=== PATIENT | female | born 1990 | race Caucasian/White ===

== ENCOUNTER 2023-04-01 17:29 | Emergency (ER) | payer SELFPAY ==
[2023-04-01 17:41] VITALS: BP 119/73; PULSE 89; RESP 16; TEMP 36.7; O2SAT 100
--- NOTE | 2023-04-01 18:13 | ED.GENADULT ---
HPI - General Adult General Chief complaint: Skin/Abscess/Foreign Body Stated complaint: itching skin Time Seen by Provider: 04/01/23 18:17 History of Present Illness HPI narrative: Zulay River is a 33 y/o female who presents with reports of having an itchy rash to her trunk, bilateral upper and lower extremities for two weeks. She has been trying to take Zyrtec at home without much relief. Denies SOB denies throat swelling/ no difficulty swallowing. Related Data Allergies Allergy/AdvReac Type Severity Reaction Status Date / Time No Known Allergies Allergy Verified 04/01/23 17:30 Review of Systems Review of Systems: All systems reviewed & are unremarkable except as noted in HPI and below (itchy rash to arms/ trunk and legs. ) Constitutional: Constitutional: Reports as per HPI Exam Const: General: healthy appearing, no acute distress and alert Nutritional Appearance: well nourished Orientation/consciousness: patient oriented x3 Limitations: no limitations HENMT: Head: normal to inspection Eyes: Conjunctivae: conjunctivae normal Neck: Neck: normal visual inspection Chest: Chest palpation & inspection: normal inspection of the chest Resp: Effort & Inspection: normal respiratory effort Auscultation: clear to auscultation bilaterally Cardio: Rate: regular rate Rhythm: regular rhythm Skin: General skin exam: normal color Rashes: no rashes (pink blanchable rash to chest/ abdomen /upper and lower extremities scatter) Neuro: General: patient oriented x3 Extrem: General: normal to inspection Psych: Mental Status: mental status grossly normal Affect: normal affect Course Vital Signs Vital signs: Vital Signs Temperature 36.7 C 04/01/23 17:41 Pulse Rate 89 04/01/23 17:41 Respiratory Rate 16 04/01/23 17:41 Blood Pressure 119/73 04/01/23 17:41 Pulse Oximetry 100 04/01/23 17:41 Oxygen Delivery Room Air 04/01/23 17:41 Temperature 36.7 C 04/01/23 17:41 Pulse Rate 89 04/01/23 17:41 Respiratory Rate 16 04/01/23 17:41 Blood Pressure 119/73 04/01/23 17:41 Pulse Oximetry 100 04/01/23 17:41 Oxygen Delivery Room Air 04/01/23 17:41 Medical Decision Making [facility] Narrative Medical decision making narrative: erythemic urticaria noted to trunk/ arms/ legs tht pt complains is itchy / no drainage/ evidence of infection denies SOB / no chest pain No known irritant has been ongoing for 2 weeks, with minimal relief with PO Zyrtec Plan to treat here with steroids/ Benadryl/ famotidine and will d/c home with continuation of treatment discussed plan with pt and her significant other all questions answered denies needing anything further. Medical Records Medical records reviewed: Yes I reviewed the external patient's medical records. Vital Signs Vital Signs: Vital Signs Temperature 36.7 C 04/01/23 17:41 Pulse Rate 89 04/01/23 17:41 Respiratory Rate 16 04/01/23 17:41 Blood Pressure 119/73 04/01/23 17:41 Pulse Oximetry 100 04/01/23 17:41 Oxygen Delivery Room Air 04/01/23 17:41 Temperature 36.7 C 04/01/23 17:41 Pulse Rate 89 04/01/23 17:41 Respiratory Rate 16 04/01/23 17:41 Blood Pressure 119/73 04/01/23 17:41 Pulse Oximetry 100 04/01/23 17:41 Oxygen Delivery Room Air 04/01/23 17:41 Discharge Plan Discharge Clinical Impression: Contact dermatitis Qualifiers: Contact dermatitis type: unspecified Contact dermatitis trigger: unspecified trigger Qualified Code(s): L25.9 - Unspecified contact dermatitis, unspecified cause Patient Disposition: Home, Self-Care Condition: Stable Instructions: Antibiotic Form Additional Instructions: Continue to take the Zyrtec daily continue to take Benadryl at bedtime for severe itching Start the prednisone once daily for 5 days starting 04/02 Continue to take Famotidine once daily Follow up with a PCP in 1 week Return to the ED for any worsening symptoms or concerns.
[2023-04-01] MEDS: diphenhydrAMINE HCl CAP 25 MG CAPSULE 50 MG PO (19:00)
[2023-04-01] MEDS: FAMOTIDINE 20 MG TABLET PO (19:00)
--- NOTE | 2023-04-01 19:23 | ED_ITS ---
HPI - General Adult General Chief complaint: Skin/Abscess/Foreign Body Stated complaint: itching skin Time Seen by Provider: 04/01/23 18:17 Related Data Allergies Allergy/AdvReac Type Severity Reaction Status Date / Time No Known Allergies Allergy Verified 04/01/23 17:30 Course Vital Signs Vital signs: Vital Signs Temperature 36.7 C 04/01/23 17:41 Pulse Rate 89 04/01/23 17:41 Respiratory Rate 16 04/01/23 17:41 Blood Pressure 119/73 04/01/23 17:41 Pulse Oximetry 100 04/01/23 17:41 Oxygen Delivery Room Air 04/01/23 17:41 Temperature 36.7 C 04/01/23 17:41 Pulse Rate 89 04/01/23 17:41 Respiratory Rate 16 04/01/23 17:41 Blood Pressure 119/73 04/01/23 17:41 Pulse Oximetry 100 04/01/23 17:41 Oxygen Delivery Room Air 04/01/23 17:41 Medical Decision Making Vital Signs Vital Signs: Vital Signs Temperature 36.7 C 04/01/23 17:41 Pulse Rate 89 04/01/23 17:41 Respiratory Rate 16 04/01/23 17:41 Blood Pressure 119/73 04/01/23 17:41 Pulse Oximetry 100 04/01/23 17:41 Oxygen Delivery Room Air 04/01/23 17:41 Temperature 36.7 C 04/01/23 17:41 Pulse Rate 89 04/01/23 17:41 Respiratory Rate 16 04/01/23 17:41 Blood Pressure 119/73 04/01/23 17:41 Pulse Oximetry 100 04/01/23 17:41 Oxygen Delivery Room Air 04/01/23 17:41 Discharge Plan Discharge Clinical Impression: Contact dermatitis Qualifiers: Contact dermatitis type: unspecified Contact dermatitis trigger: unspecified trigger Qualified Code(s): L25.9 - Unspecified contact dermatitis, unspecified cause Patient Disposition: Home, Self-Care Condition: Stable Instructions: Antibiotic Form Additional Instructions: Continue to take the Zyrtec daily continue to take Benadryl at bedtime for severe itching Start the prednisone once daily for 5 days starting 04/02 Continue to take Famotidine once daily Follow up with a PCP in 1 week Return to the ED for any worsening symptoms or concerns. Prescriptions: New cetirizine [Zyrtec] 10 mg tablet 10 mg PO DAILY PRN (Reason: allergy symptoms) Qty: 30 0RF diphenhydramine HCl [Benadryl Allergy] 25 mg tablet 50 mg PO HS PRN (Reason: itching) Qty: 30 0RF prednisone 50 mg tablet 50 mg PO DAILY Qty: 5 0RF famotidine 20 mg tablet 20 mg PO DAILY Qty: 30 0RF triamcinolone acetonide 0.5 % ointment 1 applic topical BID Qty: 15 1RF Follow-up/Referrals: Family Medicine [facility] [Provider Group] - 1 Week PHYSICIAN,[employer]ER [Primary Care Provider] - Time of Disposition: 18:24
== END 2023-04-01 19:27 | disposition home or self-care (01) ==
PROVIDERS: Emergency Provider Nurse Practitioner Family
DX: L25.9 Unspecified contact dermatitis, unspecified cause (principal)
CPT/HCPCS: 96372; 99283; A9270; J1100

== ENCOUNTER 2024-05-28 14:28 | Emergency (ER) | payer OTHER, SELFPAY ==
[2024-05-28 14:33] VITALS: BP 120/71; PULSE 62; RESP 16; TEMP 36.4; O2SAT 100
[2024-05-28] MEDS: predniSONE 20 MG TABLET 60 MG PO (17:33)
[2024-05-28 17:34] VITALS: BP 132/80; PULSE 78; RESP 16; TEMP 36.6; O2SAT 100
--- NOTE | 2024-05-28 18:07 | ED_ITS ---
HPI - Allergic Reaction General Chief complaint: Allergic Reaction Stated complaint: ALLERGY Time Seen by Provider: 05/28/24 16:13 History of Present Illness HPI narrative: 34-year-old female presents emergency department for evaluation for allergic reaction. Patient states her last few days she has had increased itching and urticarial hives over legs chest and back. Patient denies any swelling of tongue lips and difficulty breathing or swallowing. Patient has had this happen before in the beginning of winter last year. Patient was treated with steroids and this improved. patient denies any underlying allergies. Related Data Allergies Allergy/AdvReac Type Severity Reaction Status Date / Time No Known Allergies Allergy Verified 04/01/23 17:30 Review of Systems Review of Systems: All systems reviewed & are unremarkable except as noted in HPI and below Exam Narrative: APPEARANCE: Well appearing, no pain, no distress, well-nourished. HEAD: normocephalic, atraumatic. EYES: PERRLA/EOMI, conjunctivae clear. NOSE: Normal no drainage EARS:TMS clear with good light reflex. THROAT: Pharynx clear, no exudate. NECK: Supple. No adenopathy, no masses. RESPIRATORY: Airway patent, respirations nonlabored. Clear to auscultation bilaterally, no rales, rhonchi, wheezing. CARDIOVASCULAR: Regular rate and rhythm without murmurs rubs or gallops. ABDOMINAL: Soft, nontender, nondistended, normal bowel sounds MUSCULOSKELETAL: Moves all extremities. Strength/ROM intact, No edema, No calf tenderness. NEURO: Alert. Cranial nerves II through XII intact. Grossly intact SKIN: Urticarial rash on legs chest abdomen back Course Vital Signs Vital signs: Vital Signs Temperature 97.6 F 05/28/24 14:33 Pulse Rate 62 05/28/24 14:33 Respiratory Rate 16 05/28/24 14:33 Blood Pressure 120/71 05/28/24 14:33 Pulse Oximetry 100 05/28/24 14:33 Temperature 97.9 F 05/28/24 17:34 Pulse Rate 78 05/28/24 17:34 Respiratory Rate 16 05/28/24 17:34 Blood Pressure 132/80 05/28/24 17:34 Pulse Oximetry 100 05/28/24 17:34 Oxygen Delivery Room Air 05/28/24 16:16 MDM - Allergic Reaction MDM Narrative Medical decision making narrative: 34-year-old female presents emergency department for evaluation for urticarial rash. Patient denies any new soaps detergents perfumes foods or medications. Patient does have prior history of when to her urticaria. Patient was started on Medrol Dosepak. Patient was encouraged close follow-up with her primary care physician and with the education supervisor. Patient continues to deny difficulty breathing swallowing or facial swelling. Differential Diagnosis Differential diagnosis: Likely anaphylaxis, allergic reaction, contact dermatitis, adverse reaction to drug, viral enanthem and urticaria Discharge Plan Discharge Clinical Impression: Allergic reaction, Urticaria Patient Disposition: Home, Self-Care Condition: Stable Instructions: Antibiotic Form, Urticaria (ED), General Allergic Reaction (ED) Additional Instructions: Medrol Dosepak as directed until completed. Benadryl as needed for intermittent hives or itching. Have close follow-up with Dr. Lamb, you will also need follow-up with an education supervisor. If you have any worsening symptoms then please call or return to the emergency department. Patient Language: [place] Prescriptions: New methylprednisolone [Medrol (Chance)] 4 mg tablets,dose pack See Rx Instructions .ROUTE .COMPLEX Qty: 21 0RF Rx Instructions: for 6 days No Action cetirizine [Zyrtec] 10 mg tablet 10 mg PO DAILY PRN (Reason: allergy symptoms) Qty: 30 0RF diphenhydramine HCl [Benadryl Allergy] 25 mg tablet 50 mg PO HS PRN (Reason: itching) Qty: 30 0RF prednisone 50 mg tablet 50 mg PO DAILY Qty: 5 0RF famotidine 20 mg tablet 20 mg PO DAILY Qty: 30 0RF triamcinolone acetonide 0.5 % ointment 1 applic topical BID Qty: 15 1RF Follow-up/Referrals: PHYSICIAN,[employer] [Primary Care Provider] -
== END 2024-05-28 17:37 | disposition home or self-care (01) ==
PROVIDERS: Emergency Provider Emergency Medicine
DX: L50.9 Urticaria, unspecified (principal); T78.40XA Allergy, unspecified, initial encounter
CPT/HCPCS: 99283; J7512